=== PATIENT | male | born 1925 | race Caucasian/White ===

== ENCOUNTER 2017-07-19 20:00 | Inpatient (IN) | payer OTHER ==
[~2017-07-19] VITALS: Ht 182.9 cm; Wt 75.9 kg
[2017-07-19 20:01] VITALS: BP 94/54
[2017-07-19 20:19] LABS: BASOPHILS % (AUTO) 4.2 % (0.0-2.0); HEMATOCRIT 34 % (39-51); HEMOGLOBIN 10.8 g/dL (13.5-17.5); LYMPHOCYTES # (AUTO) 1.3 /CMM (0.8-4.8); LYMPHOCYTES % (AUTO) 5.6 % (20.0-44.0); MEAN CORPUSCULAR HEMOGLOBIN 26 PG (26.0-33.0); MEAN CORPUSCULAR HGB CONC 32 g/dl (31.0-36.0); MEAN CORPUSCULAR VOLUME 81 fL (80-96); MONOCYTES # (AUTO) 0.5 /CMM (0.1-1.30); MONOCYTES % (AUTO) 2.2 % (2.0-12.0); NEUTROPHILS # (AUTO) 21.1 /CMM (1.8-8.9); PLATELET COUNT (AUTO) 321 /CMM (150-450); RDW COEFFICIENT OF VARIATION 18.2 (11.5-15.0); RED BLOOD CELL COUNT(AUTO) 4.16 MIL/uL (4.5-6.0); WHITE BLOOD COUNT (AUTO) 23.9 K/uL (4.3-11.0)
[2017-07-19] MEDS ORDERED: PIPERACILLIN /TAZOBACTAM 3.375 G VIAL IV ONE (20:19)
--- NOTE | 2017-07-19 20:20 | NUR ---
PT BRIB LAFD FROM NURSING FACILITY, A/O X 3, BREATHING LABORED RR 32 SAT 93%, ON CPAP, SINUS TACH ON CARDIAC MONOR HR 115, ABDOMEN NON DISTENDED, SKIN WARM/DRY, PT WITH X2 IV SITES FROM FIELD L AC/ L WRIST PATENT, RESP BEDSIDE CONVETED TO BI-PAP RATE 16 O2 100%.
[2017-07-19 20:22] LABS: ABG BASE EXCESS 5.1 mmol/L; ABG OXYGEN SATURATION 90.9 % (92.0-98.5); ABG PCO2 51.2 mmHg (35.0-45.0); ABG PH 7.398 (7.350-7.450); ABG PO2 67.3 mmHg (75.0-100.0); AaDO2 594.5 mmHg; COHb 0.6 % (0.5-1.5); MetHb 0.5 % (0.0-1.5); O2Hb 89.9 % (94.0-97.0); SITE, ABG Right Radial; VENT MODE, BG BIPAP 25/5
[2017-07-19 20:26] LABS: CALCIUM, SERUM 9.1 mg/dL (8.5-10.1); CARBON DIOXIDE 31 mmol/L (21-32); CHLORIDE 108 mmol/L (98-107); CREATININE 1.3 mg/dL (0.6-1.3); GLUCOSE 234 mg/dL (74-106); POTASSIUM 4.9 mmol/L (3.5-5.1); SODIUM SERUM 141 mmol/L (136-145); UREA NITROGEN, BLOOD 56 mg/dL (7-18)
[2017-07-19] MEDS ORDERED: PIPERACILLIN /TAZOBACTAM 3.375 G in IV D5W 50 ML IV ONE (20:30)
[2017-07-19] MEDS ORDERED: VANCOMYCIN 1 GM in IV D5W 250 ML IV ONE (20:30)
[2017-07-19 20:31] LABS: INR 1.04 (0.87-1.13); PROTHROMBIN TIME 10.8 SECS (9.5-12.7)
[2017-07-19 20:35] LABS: TROPONIN I 0.115 ng/mL (0.00-0.056)
[2017-07-19 20:42] LABS: ALANINE AMINOTRANSFERASE 26 U/L (12-78); ALBUMIN 2.4 g/dL (3.4-5.0); ALKALINE PHOSPHATASE 56 U/L (46-116); ASPARTATE AMINOTRANSFERASE 15 U/L (15-37); B-TYPE NATRIURETIC PEPTIDE 1890 PG/ML (0-125); BILIRUBIN,TOTAL 0.3 mg/dL (0.2-1.0); TOTAL PROTEIN, SERUM 5.9 g/dL (6.4-8.2)
[2017-07-19] MEDS ORDERED: VANCOMYCIN 1 GM VIAL ONE (20:54)
[2017-07-19] MEDS ORDERED: IV NS 0.9% 1,000 ML BAG IV ONE (21:00)
[2017-07-19] MEDS ORDERED: ASPIRIN 81 MG TAB.CHEW PO ONE (21:00)
--- NOTE | 2017-07-19 21:17 | NUR ---
CALLED [facility], PRESENTED PT, AWAITING CALL BACK FROM [facility]
--- NOTE | 2017-07-19 21:19 | NUR ---
CALLED NURSING SUP. FOR ICU BED
--- NOTE | 2017-07-19 21:22 | NUR ---
ICU 257
--- NOTE | 2017-07-19 21:27 | NUR ---
PT RESTING IN BED, BIIPAP IN PLACE, A/O X 3, SINUS TACH ON PUBLISHING AGENT, BEDSDIE, UPDATED ON PLAN OF CARE TO ADMIT
[2017-07-19] MEDS ORDERED: ZOLPIDEM TARTRATE 5 MG TABLET PO PRN (21:30)
[2017-07-19] MEDS ORDERED: ACETAMINOPHEN 325 MG TABLET PO PRN (21:30)
[2017-07-19] MEDS ORDERED: ONDANSETRON HCL/PF 4 MG/2 ML VIAL IVP PRN (21:30)
[2017-07-19] MEDS ORDERED: MAGNESIUM HYDROXIDE 30 ML UDC PO PRN (21:30)
[2017-07-19] MEDS ORDERED: Z GUARD REMEDY 2 OZ OINT TP PRN (21:30)
[2017-07-19] MEDS ORDERED: HYDROCODONE/APAP 5/325MG 1 EACH TABLET PO PRN (21:30)
[2017-07-19] MEDS ORDERED: MAG HYDROX/AL HYDROX/SIMETH 30 ML UDC PO PRN (21:30)
[2017-07-19] MEDS ORDERED: ENOXAPARIN SODIUM 30 MG/0.3 ML DISP.SYRIN SQ SCH (21:30)
[2017-07-19 21:33] LABS: APPEARANCE,URINE Clear (CLEAR); BILIRUBIN,URINE Negative (NEGATIVE); BLOOD, URINE Negative Ery/uL (NEGATIVE); COLOR,URINE Yellow (YELLOW); KETONES,URINE Negative (NEGATIVE); LEUKOCYTE ESTERASE ,URINE Negative (NEGATIVE); NITRITE, URINE Negative (NEGATIVE); PROTEIN,URINE Negative (NEGATIVE); UGLUCOSE Negative (NEGATIVE); UROBILINOGEN,URINE 0.2 EU/dL (0.2)
[2017-07-19 21:43] LABS: BAND % (MANUAL) 2 % (0.0-5.0); LYMPHOCYTES % (MANUAL) 4 % (16-48); MONOCYTES % (MANUAL) 2 % (0-11.0); NEUTROPHILS % (MANUAL) 92 (42-76)
--- NOTE | 2017-07-19 21:44 | NUR ---
REPORT TO TALON CORBIN, ALL QUESTIONS ANSWERED
[2017-07-19] MEDS ORDERED: IPRA0.2S49 IH (21:52)
[2017-07-19] MEDS ORDERED: MOME13HF INH (21:52)
[2017-07-19] MEDS ORDERED: METH4TAB PO (21:52)
[2017-07-19] MEDS ORDERED: ASPI-605 PO (21:52)
[2017-07-19] MEDS ORDERED: ATOR10TA PO (21:55)
[2017-07-19] MEDS ORDERED: TERA2CAP4 PO (21:55)
[2017-07-19] MEDS ORDERED: OMEP20CA10 PO (21:55)
[2017-07-19] MEDS ORDERED: FINA5TAB4 PO (21:55)
[2017-07-19] MEDS ORDERED: MIRT15TA3 PO (21:55)
[2017-07-19 22:30] VITALS: BP 126/57
--- NOTE | 2017-07-19 22:30 | NUR ---
FIELD MERCHANDISER ASSUMED CARE OF 89 MALE W/DX RESP FAILURE; PT IS ALERT W/EPISODES OF CONFUSION; COMPLIANT WITH TREATMENT; RECENT FALL. SKIN TEAR TO RIGHT ELBOW; ECCHYMOSIS TO BUE/BLE. ST ON MONITOR. ON BIPAP 100%; TOLERATING WELL.
[2017-07-19] MEDS: IV NS 0.9% 1,000 ML IV PRN (22:50)
[2017-07-19 23:00] VITALS: BP 109/58
--- NOTE | 2017-07-19 23:10 | NUR ---
ICU/RN-SPOKE TO SIOBHAN REGARDING PT. CODE STATUS. PER CONVERSATION WITH THE . BOTH PATIENT AND DECIDED .PT. TO BE A "DO NOT RESUSCITATE STATUS". WILL BRING COPY OF ADVANCE DIRECTIVE IN AM.
[2017-07-19 23:30] VITALS: BP 115/68
[2017-07-19] MEDS ORDERED: ENOXAPARIN SODIUM 30 MG/0.3 ML DISP.SYRIN ONE (23:45)
[2017-07-19 23:48] VITALS: BP 115/68
[2017-07-20] VITALS (35 sets, daily range): BP systolic 104–153; BP diastolic 50–90
[2017-07-20] MEDS ORDERED: *INSULIN REGULAR(HUMULIN R)HUM 100 UNIT/ML VIAL SQ PRN (01:00)
[2017-07-20] MEDS ORDERED: IPRATROPIUM NEB FS 0.5 MG/2.5 ML AMPUL.NEB IH SCH (01:00)
[2017-07-20] MEDS ORDERED: INSULIN REGULAR, HUMAN 100 UNIT/ML 3 ML VIAL SQ PRN (01:00)
[2017-07-20] MEDS ORDERED: DEXTROSE 50%-WATER 50 ML DISP.SYRIN IV PRN (01:00)
[2017-07-20] MEDS ORDERED: IPRATROPIUM NEB FS 0.5 MG/2.5 ML AMPUL.NEB ONE (01:05)
[2017-07-20] MEDS ORDERED: methylPREDNISolone SOD SUCC 125 MG/2ML VIAL ONE (01:43)
[2017-07-20] MEDS: methylPREDNISolone SOD SUCC 125 MG/2ML VIAL IV SCH ×4 (01:43→16:29)
--- NOTE | 2017-07-20 02:17 | NUR ---
SURVEY STATISTICIAN RCD CALL FROM [facility]; UPDATED ON REQUESTED INFORMATION.
[2017-07-20] MEDS ORDERED: PIPERACILLIN /TAZOBACTAM 3.375 G in IV D5W 50 ML IV SCH (05:00)
[2017-07-20] MEDS ORDERED: PIPERACILLIN /TAZOBACTAM 3.375 G VIAL IV ONE (05:14)
[2017-07-20 05:15] LABS: EOSINOPHILS % (AUTO) 0.1 % (0.0-6.0); HEMATOCRIT 31 % (39-51); HEMOGLOBIN 10.1 g/dL (13.5-17.5); LYMPHOCYTES # (AUTO) 0.2 /CMM (0.8-4.8); MEAN CORPUSCULAR HEMOGLOBIN 27 PG (26.0-33.0); MEAN CORPUSCULAR HGB CONC 33 g/dl (31.0-36.0); MEAN CORPUSCULAR VOLUME 83 fL (80-96); MONOCYTES # (AUTO) 0.3 /CMM (0.1-1.30); MONOCYTES % (AUTO) 1.3 % (2.0-12.0); NEUTROPHILS # (AUTO) 21.3 /CMM (1.8-8.9); NEUTROPHILS % (AUTO) 97.6 % (43.0-81.0); PLATELET COUNT (AUTO) 231 /CMM (150-450); RDW COEFFICIENT OF VARIATION 19.6 (11.5-15.0); RED BLOOD CELL COUNT(AUTO) 3.74 MIL/uL (4.5-6.0); WHITE BLOOD COUNT (AUTO) 21.9 K/uL (4.3-11.0)
--- NOTE | 2017-07-20 05:23 | NUR ---
FIO2 TITRATED TO 60%. RN NOTIFIED. Addendum: 07/20/17 at 0524 by LYRIC VELOZ RT Amended: Links added.
[2017-07-20 05:26] LABS: CALCIUM, SERUM 8.7 mg/dL (8.5-10.1); CARBON DIOXIDE 28 mmol/L (21-32); CHLORIDE 111 mmol/L (98-107); CREATININE 1.3 mg/dL (0.6-1.3); GLUCOSE 134 mg/dL (74-106); MAGNESIUM 1.9 mg/dL (1.8-2.4); PHOSPHORUS 3.8 mg/dL (2.5-4.9); POTASSIUM 4.8 mmol/L (3.5-5.1); SODIUM SERUM 145 mmol/L (136-145); UREA NITROGEN, BLOOD 55 mg/dL (7-18)
[2017-07-20 06:14] LABS: BAND % (MANUAL) 5 % (0.0-5.0); LYMPHOCYTES % (MANUAL) 1 % (16-48); MONOCYTES % (MANUAL) 4 % (0-11.0); NEUTROPHILS % (MANUAL) 90 (42-76)
[2017-07-20] MEDS: IPRATROPIUM NEB FS 0.5 MG/2.5 ML AMPUL.NEB IH SCH ×5 (07:53→23:51)
--- NOTE | 2017-07-20 08:00 | NUR ---
ICU/RN INITIAL NOTES,AM RECEIVED REPORT FROM NIGHT NURSE. PT ALERT, FOLLOWS SIMPLE COMMAND. PT ON BIPAP WITH SETTINGS ORDERED BY MD. NO ACUTE DISTRESS NOTED. SINUS RHYTHM/SINUS TACHY ON TELE. IV FLUIDS INFUSING ORDERED. SANCHEZ INTACT. AT BEDSIDE, RECEIVED A COPY OF THE POLST, PLACED IN CHART. CONFIRMED PT IS DNR/DNI. ALL NEEDS WILL BE MET, TURNED AND REPOSITIONED. SAFETY MEASURES TAKEN, BED IN LOW POSITION, SIDE RAILS UP, CALL LIGHT WITHIN REACH. WILL CONTINUE CARE.
[2017-07-20] MEDS: BLOOD SUGAR DIAGNOSTIC 1 EACH STRIP VI SCH ×2 (08:18→12:00)
--- NOTE | 2017-07-20 08:20 | NUR ---
ICU/RN: BLOOD GLUCOSE 134. INSULIN HELD, PT ON BIPAP, NPO.
[2017-07-20] MEDS: ASPIRIN EC 81 MG TABLET.DR PO SCH (09:00)
[2017-07-20] MEDS: FINASTERIDE (5 MG) 5 MG TABLET PO SCH (09:00)
--- NOTE | 2017-07-20 09:20 | NUR ---
ICU/RN: PER MD, AM PO MEDICATIONS HELD. SWALLOW EVAL ORDERED. PT NPO AT THIS TIME. WILL FOLLOW UP
--- NOTE | 2017-07-20 10:00 | NUR ---
ICU/RN: PER , PT PLACED ON 15LITERS NON REBREATHER, WILL ASSESS AND MONITOR CLOSELY, TOLERATING WELL SO FAR.
[2017-07-20 11:04] LABS: IRON, SERUM 12 ug/dl (50-175); TOTAL IRON BINDING CAPACITY 160 ug/dl (250-450)
[2017-07-20] MEDS: IV NS 0.9% 1,000 ML IV PRN (12:57)
[2017-07-20] MEDS: PIPERACILLIN /TAZOBACTAM 3.375 G in IV D5W 50 ML IV SCH ×3 (13:14→23:50)
[2017-07-20] MEDS ORDERED: FEE PK DOSING 1 MIN EA MC ONE (13:57)
[2017-07-20] MEDS: VANCOMYCIN 1 GM in IV D5W 250 ML IV SCH (16:28)
[2017-07-20] MEDS ORDERED: AZITHROMYCIN 500 MG in IV D5W 250 ML IV SCH (17:00)
--- NOTE | 2017-07-20 17:20 | NUR ---
ICU/RN: PER MD ORDERS PT TAKEN TO HEAD CT WITH ACLS GUIDELINES. NO DISTRESS VSS.
[2017-07-20] MEDS ORDERED: ATORVASTATIN 10 MG TABLET PO SCH (18:00)
--- NOTE | 2017-07-20 18:22 | NUR ---
ICU/RN: REPORT WILL BE ENDORSED TO NIGHT NURSE FOR CONTINUATION OF CARE. ALL NEEDS ATTENDED TO, PT ON 15L NRB MASK, TOLERATING WELL, NO DISTRESS, MAINTAINING 02 SAT >95%. SINUS ON TELE. IV FLUIDS INFUSING. NO BM, WILL ENDORSE FOR NIGHT NURSE TO FOLLOW UP WITH OCCULT BLOOD. PER ID, ORDERS TO OBTAIN MEDICAL RECORDS, OFFICE AT [facility], WILL FOLLOW UP IN AM. ALL NEEDS MET, SAFETY MEASURES TAKEN, BED IN LOW POSITION, SIDE RAILS UP,CALL LIGHT WITHIN REACH, WILL CONTINUE CARE
[2017-07-20] MEDS: AZITHROMYCIN 500 MG in IV D5W 250 ML IV SCH (21:07)
[2017-07-20] MEDS: TERAZOSIN HCL 1 MG CAPSULE PO SCH (21:08)
[2017-07-20] MEDS: MIRTAZAPINE SOLUTAB 15 MG/UDTABLET TAB.RAPDIS PO SCH (21:08)
[2017-07-21] VITALS (42 sets, daily range): BP systolic 95–176; BP diastolic 51–91
[2017-07-21] MEDS: IPRATROPIUM NEB FS 0.5 MG/2.5 ML AMPUL.NEB IH SCH ×6 (03:09→23:35)
--- NOTE | 2017-07-21 05:04 | NUR ---
FLUME RIDE OPERATOR- REC'D PT. AT CHANGE OF SHIFT ON 15L/NRB & SATTING >93-100%. PT'S DAUGHTER & RN FRIEND STOPPED BY AT MN. PT. WAS VERY HAPPY. PT. HAS A HARD TIME BRINGING UP SPUTUM. + PULMONARY TOILETING. RT TX'S Q 4HRS. COMP. BEDBATH DONE AT 4AM W/ORAL,STEPHAN & SKIN/WOUND CARE ADM. NO BM. ORDER FOR RESP CX/GM STAIN & OCC.BLOOD STILL EXISTS. SANCHEZ CATH TO GRAVITY W/GOOD UOP. 3 PIV'S ARE ALL PATENT TO FLUSH & 0.9%NS IS INFUSING AT 75 CC/HR. VIA BEARD PUMP. NPO. AFEBRILE. CONT.POC.
[2017-07-21] MEDS: PIPERACILLIN /TAZOBACTAM 3.375 G in IV D5W 50 ML IV SCH ×3 (05:19→17:24)
[2017-07-21 05:28] LABS: HEMATOCRIT 26 % (39-51); HEMOGLOBIN 8.4 g/dL (13.5-17.5); LYMPHOCYTES # (AUTO) 0.3 /CMM (0.8-4.8); LYMPHOCYTES % (AUTO) 2.6 % (20.0-44.0); MEAN CORPUSCULAR HEMOGLOBIN 26 PG (26.0-33.0); MEAN CORPUSCULAR HGB CONC 32 g/dl (31.0-36.0); MEAN CORPUSCULAR VOLUME 82 fL (80-96); MONOCYTES # (AUTO) 0.2 /CMM (0.1-1.30); NEUTROPHILS # (AUTO) 10.7 /CMM (1.8-8.9); NEUTROPHILS % (AUTO) 95.4 % (43.0-81.0); PLATELET COUNT (AUTO) 208 /CMM (150-450); RDW COEFFICIENT OF VARIATION 18.4 (11.5-15.0); RED BLOOD CELL COUNT(AUTO) 3.22 MIL/uL (4.5-6.0); WHITE BLOOD COUNT (AUTO) 11.2 K/uL (4.3-11.0)
[2017-07-21 05:37] LABS: CARBON DIOXIDE 32 mmol/L (21-32); CHLORIDE 114 mmol/L (98-107); CREATININE 0.9 mg/dL (0.6-1.3); GLUCOSE 115 mg/dL (74-106); MAGNESIUM 2.1 mg/dL (1.8-2.4); PHOSPHORUS 3.3 mg/dL (2.5-4.9); POTASSIUM 4.2 mmol/L (3.5-5.1); SODIUM SERUM 149 mmol/L (136-145); UREA NITROGEN, BLOOD 38 mg/dL (7-18)
[2017-07-21] MEDS ORDERED: DILTIAZEM HCL 25 MG IV IV ONE (07:30)
[2017-07-21] MEDS ORDERED: AMIODARONE 900 MG in IV D5W 482 ML IV PRN (07:30)
[2017-07-21] MEDS ORDERED: AMIODARONE 150 MG in IV D5W 100 ML IV ONE (07:30)
--- NOTE | 2017-07-21 08:03 | NUR ---
ICU/RN INITIAL NOTES,AM RECEIVED REPORT FROM NIGHT NURSE. PT ALERT TO SELF AND PLACE, FOLLOWS SIMPLE COMMAND. PT ON 15L NRB MASK, NO ACUTE DISTRESS NOTED. AT 0654 PT CONVERTED TO A.FIB. CARDIOLOGY AT BEDSIDE, ORDERS FOR AMIODARONE BOLUS AND DRIP RECEIVED ALONG WITH ONE DOSE OF DILTIAZEM. WILL ADMIN AND WILL CONTINUE TO MONITOR AND ASSESS. IV FLUIDS INFUSING ORDERED. SANCHEZ INTACT, DRAINING YELLOW URINE. ALL NEEDS WILL BE MET, TURNED AND REPOSITIONED. SAFETY MEASURES TAKEN, BED IN LOW POSITION, SIDE RAILS UP, CALL LIGHT WITHIN REACH. WILL CONTINUE CARE.
[2017-07-21 08:17] LABS: ABG BASE EXCESS 4.2 mmol/L; ABG OXYGEN SATURATION 98.9 % (92.0-98.5); ABG PCO2 47.2 mmHg (35.0-45.0); ABG PH 7.412 (7.350-7.450); ABG PO2 312.1 mmHg (75.0-100.0); AaDO2 353.7 mmHg; COHb 0.3 % (0.5-1.5); MetHb 0.8 % (0.0-1.5); O2Hb 97.8 % (94.0-97.0); SITE, ABG Left Brachial
[2017-07-21] MEDS ORDERED: FORMOTEROL INH SCH (09:00)
[2017-07-21] MEDS ORDERED: MOMETASONE INH SCH (09:00)
[2017-07-21] MEDS: FINASTERIDE (5 MG) 5 MG TABLET PO SCH (09:15)
[2017-07-21] MEDS: methylPREDNISolone SOD SUCC 125 MG/2ML VIAL IV SCH ×3 (09:15→17:25)
[2017-07-21] MEDS: ASPIRIN EC 81 MG TABLET.DR PO SCH (09:15)
[2017-07-21] MEDS: IV NS 0.9% 1,000 ML IV PRN (09:30)
[2017-07-21] MEDS: VANCOMYCIN 1 GM in IV D5W 250 ML IV SCH (09:30)
--- NOTE | 2017-07-21 11:00 | NUR ---
ICU/RN: SWALLOW EVAL DONE. PT PLACED ON PUREE DIET, WITH NECTAR THICK. FEEDER. WILL CONTINUE TO CLOSELY MONITOR AND ASSESS FOR AIRWAY SAFETY. TOLERATING WELL
--- NOTE | 2017-07-21 19:07 | NUR ---
ICU/RN ENDING NOTES,AM REPORT ENDORSED TO NIGHT NURSE FOR CONTINUATION OF CARE. PT ON NASAL CANULA, NO ACUTE DISTRESS NOTED, TOLERATING WELL. PT CLEAN AND DRY. AMIO INFUSING AT 0.5MG. PT UNCONTROLLED A. FIB ON TELE. SAFETY MEASURES TAKEN, BED IN LOW POSITION, SIDE RIAL UP, CALL LIGHT WITHIN REACH. WILL CONTINUE CARE.
[2017-07-21] MEDS: AZITHROMYCIN 500 MG in IV D5W 250 ML IV SCH (21:02)
[2017-07-21] MEDS: TERAZOSIN HCL 1 MG CAPSULE PO SCH (21:03)
[2017-07-21] MEDS: MIRTAZAPINE SOLUTAB 15 MG/UDTABLET TAB.RAPDIS PO SCH (21:03)
[2017-07-22] VITALS (27 sets, daily range): BP systolic 125–178; BP diastolic 58–97
[2017-07-22] MEDS: PIPERACILLIN /TAZOBACTAM 3.375 G in IV D5W 50 ML IV SCH ×4 (01:28→17:14)
[2017-07-22] MEDS: IPRATROPIUM NEB FS 0.5 MG/2.5 ML AMPUL.NEB IH SCH ×4 (03:03→15:32)
[2017-07-22] MEDS: VANCOMYCIN 1 GM in IV D5W 250 ML IV SCH (03:25)
[2017-07-22 05:30] LABS: EOSINOPHILS % (AUTO) 0.1 % (0.0-6.0); HEMATOCRIT 26 % (39-51); HEMOGLOBIN 8.7 g/dL (13.5-17.5); LYMPHOCYTES # (AUTO) 0.3 /CMM (0.8-4.8); LYMPHOCYTES % (AUTO) 2.8 % (20.0-44.0); MEAN CORPUSCULAR HEMOGLOBIN 27 PG (26.0-33.0); MEAN CORPUSCULAR HGB CONC 33 g/dl (31.0-36.0); MEAN CORPUSCULAR VOLUME 81 fL (80-96); MONOCYTES # (AUTO) 0.3 /CMM (0.1-1.30); MONOCYTES % (AUTO) 2.5 % (2.0-12.0); NEUTROPHILS # (AUTO) 11.1 /CMM (1.8-8.9); NEUTROPHILS % (AUTO) 94.6 % (43.0-81.0); PLATELET COUNT (AUTO) 215 /CMM (150-450); RDW COEFFICIENT OF VARIATION 18.2 (11.5-15.0); RED BLOOD CELL COUNT(AUTO) 3.23 MIL/uL (4.5-6.0); WHITE BLOOD COUNT (AUTO) 11.7 K/uL (4.3-11.0)
[2017-07-22 05:42] LABS: CARBON DIOXIDE 31 mmol/L (21-32); CHLORIDE 109 mmol/L (98-107); CREATININE 0.9 mg/dL (0.6-1.3); GLUCOSE 171 mg/dL (74-106); SODIUM SERUM 144 mmol/L (136-145); UREA NITROGEN, BLOOD 36 mg/dL (7-18)
--- NOTE | 2017-07-22 08:00 | NUR ---
OIL PUMPER NOTE PATINT IN BED , AWAKE ALERT ON AMIO DRIP ORDERED ON TELE MONITOR AFIB 70 , WITH SANCHEZ CATH ORDERED WITH YELLOW COLOR URINE , RT AC HL WITH REDNESS NOTED WILL F]U . BED IN LOWEST AND LOCKED POSITION ,PLAN OF CARE DISCUSSED WITH PATIENT FED BY ACCESS CLERK , ATE 100 % , WILL CONT TO MONITOR CLOSELY
[2017-07-22] MEDS: FINASTERIDE (5 MG) 5 MG TABLET PO SCH (08:13)
[2017-07-22] MEDS: methylPREDNISolone SOD SUCC 125 MG/2ML VIAL IV SCH ×3 (08:13→16:31)
[2017-07-22] MEDS: ASPIRIN EC 81 MG TABLET.DR PO SCH (08:13)
[2017-07-22] MEDS ORDERED: METOPROLOL TARTRATE 25 MG TABLET PO SCH (09:00)
[2017-07-22] MEDS ORDERED: AMIODARONE HCL 200 MG TABLET PO SCH (09:00)
[2017-07-22] MEDS ORDERED: FUROSEMIDE 20 MG/2 ML VIAL IV ONE (09:30)
--- NOTE | 2017-07-22 09:30 | NUR ---
BILLIARD PLAYER NOTE AMIODARONE DRIP STOPPED PER DR VILLALOBOS ORDER AND HOSPITAL PROTOCOL ,NOTIFIED THAT PATIENT STILL HAS CHEST CONGESTED ,WITH LASIX ORDER GIVEN AND WILL START AMIODARONE PO , WILL F\U Addendum: 07/22/17 at [address]953 [address] AMIN RN ST AT BEDSIDE ,EDDIE SIMEON
--- NOTE | 2017-07-22 11:03 | NUR ---
WOUND CARE CONSULT PATIENT SEEN AND SKIN INTEGRITY ASSESSMENT DONE. SEE DUMB WAITER OPERATOR ASSESSMENT PCS FOR TODAY ALONG WITH ALL RECOMMENDATIONS. PATIENT WITH SONI AT 12, PATIENT IS ABLE TO MOVE ALL EXTREMITIES, BUT DOES NEED SOME ASSIST WITH TURNING AND PROMPTING. ALL SKIN MANAGEMENT DISCUSSED WITH NURSING AT THE BEDSIDE. 1ST STEP LOW AIRLOSS MATTRESS IN USE. CONTINUE TURNING Q 2 HOURS PATIENT CONDITION PERMITS AND CONTINUE BILATERAL HEEL FLOATING. MD IN AGREEMENT WITH PLAN OF CARE. Addendum: 07/22/17 at 1118 by LEWIS COLEY WNDNU Amended: Links added.
[2017-07-22] MEDS ORDERED: AZIT500V13 IV (12:09)
[2017-07-22] MEDS ORDERED: METO25TA20 PO (12:09)
[2017-07-22] MEDS ORDERED: PIPE3.379 IV (12:09)
[2017-07-22] MEDS ORDERED: AMIO200T7 PO (12:09)
[2017-07-22] MEDS ORDERED: methylPREDNISolone SOD SUCC IV (12:09)
[2017-07-22] MEDS ORDERED: RXVAN XX (12:09)
--- NOTE | 2017-07-22 12:55 | NUR ---
TRADE ANALYST NOTE WALDEMAR PASCUAL PICC LINE INSERTED NEW MIDLINE ON LT FA SHAMAR 20 ,KEEP AFFECTED AREA CLEAN DRY ,WILL CONT TO MONITOR CLOSELY , PER DR SHAW HEBERT TO TRANSFER TO [facility] , SPOKE WITH OLEG CAT SITTER STATED THAT WILL START TO DO ARRANGEMENT
--- NOTE | 2017-07-22 15:12 | NUR ---
DOOR WORKER NOTE NOTED BRUISE ON RT ARM RT ARM IS SWOLLEN ,NO C\O PAIN AT THIS TIME ,RT ARM PULSES PALPABLE KEEP ELEVATED AT ALL TIME CALLED TO DR SQUIRES WITH ORDER TO HAVE US RT ARM ,ORDER CARRIED OUT
--- NOTE | 2017-07-22 16:44 | NUR ---
[place] OTE BP 177/70 HR 59, CALLED TO DR BACH EXTENDED DAY TEACHER GAVE NEW ORDER WITH HYDRALAZINE 10 MG IVP PRN , ORDER CARRIED OUT
[2017-07-22] MEDS ORDERED: hydrALAZINE HCL IV 20 MG VIAL IV PRN (17:00)
--- NOTE | 2017-07-22 18:30 | NUR ---
GOLF PLAYER ASSISTANT NOTE US ON RT ARM DONE /NEGATIVE FOR DVT , WITH SLIGHTLY RESPIRATORY DISTRESS, CALLED TO RT , WITH NASOPHARYNGEAL SUCTION DONE WITH MOD AMT OF SECRETION OBTAINED, BP STILL 174/ 69 DUE TO RESPIRATORY DISTRESS, WILL CONT TO MONITOR CLOSELY
--- NOTE | 2017-07-22 18:57 | NUR ---
DIGESTION OPERATOR NOTE AMBULANCE ARRIVED , REPORT GIVEN PATIENT STILL HAS BRUISE ON RT ARM , KEEP CLEAN DRY , ON 3L NC WITH SLIGHT SOB AND NOTED CHEST CONGESTION , BP 171\71 SAT 98% ,FAMILY AT BESIDE , CHARGE NURSE MARISELA WILL GIVE REPORT TO RN TO YUSEF DOMINGUEZ Addendum: 07/22/17 at 1917 by RAI AMIN RN 1909 patient left hospital by ambulance no sob noted at this time
--- NOTE | 2017-07-22 19:10 | NUR ---
PT PICKED UP BY [facility] AND TRANSPORTED TO [facility]. AND CHILDREN AT BEDSIDE AND WILL FOLLOW PARAMEDICS TO [place]. REPORT GIVEN TO [place] NURSE CONTRERAS
== END 2017-07-22 19:32 | disposition short-term general hospital (02) | DRG 871 ==
LOC: ER 20:03 → ICU 21:25
PROVIDERS: ADMIT Internal Medicine; ATTEND Internal Medicine
PROC: 5A09357 Assistance with Respiratory Ventilation, Less than 24 Consecutive Hours, Continuous Positive Airway Pressure (ICD-10-PCS; principal; 2017-07-19)
PROC: 05H633Z Insertion of Infusion Device into Left Subclavian Vein, Percutaneous Approach (ICD-10-PCS; 2017-07-19)
PROC: B547ZZA Ultrasonography of Left Subclavian Vein, Guidance (ICD-10-PCS; 2017-07-19)
DX: A41.9 Sepsis, unspecified organism (principal); E43 Unspecified severe protein-calorie malnutrition; I21.4 Non-ST elevation (NSTEMI) myocardial infarction; J69.0 Pneumonitis due to inhalation of food and vomit; N17.0 Acute kidney failure with tubular necrosis; J96.01 Acute respiratory failure with hypoxia; J96.02 Acute respiratory failure with hypercapnia; G92 Toxic encephalopathy; D68.59 Other primary thrombophilia; E11.22 Type 2 diabetes mellitus with diabetic chronic kidney disease; I50.31 Acute diastolic (congestive) heart failure; C49.9 Malignant neoplasm of connective and soft tissue, unspecified; I13.0 Hypertensive heart and chronic kidney disease with heart failure and stage 1 through stage 4 chronic kidney disease, or unspecified chronic kidney disease; J44.0 Chronic obstructive pulmonary disease with (acute) lower respiratory infection; I69.351 Hemiplegia and hemiparesis following cerebral infarction affecting right dominant side; J44.1 Chronic obstructive pulmonary disease with (acute) exacerbation; Z99.81 Dependence on supplemental oxygen; K21.9 Gastro-esophageal reflux disease without esophagitis; E03.9 Hypothyroidism, unspecified; D50.9 Iron deficiency anemia, unspecified; Z92.3 Personal history of irradiation; Z87.01 Personal history of pneumonia (recurrent); Z86.718 Personal history of other venous thrombosis and embolism; Z86.14 Personal history of Methicillin resistant Staphylococcus aureus infection; Z79.52 Long term (current) use of systemic steroids; N40.0 Benign prostatic hyperplasia without lower urinary tract symptoms; Z79.82 Long term (current) use of aspirin; Z79.899 Other long term (current) drug therapy; N18.9 Chronic kidney disease, unspecified; I70.0 Atherosclerosis of aorta; E78.5 Hyperlipidemia, unspecified; E86.0 Dehydration; R65.20 Severe sepsis without septic shock; Z66 Do not resuscitate; D63.8 Anemia in other chronic diseases classified elsewhere; I48.91 Unspecified atrial fibrillation
CPT/HCPCS: 31720; 36415; 36600; 70450-TC; 71045; 80048-TC; 80076-TC; 81000-TC; 82803-TC; 83540-TC; 83605-TC; 83735-TC; 83880; 84100-TC; 84484-TC; 85025-TC; 85730-TC; 87040-TC; 87070-TC; 87081-TC; 87086-TC; 87186-TC; 87400; 92526; 92611-TC; 93307-TC; 93971-TC; 94640-TC; 94762-TC; 94799-TC; 99082-TC; A4606; A4624; J0282; J0360; J0456; J1650; J1815; J1940; J2543; J2930; J3370; J3490; J7030; J7060; Z7610